=== PATIENT | female | born 1940 ===

== ENCOUNTER 2017-01-20 12:26 | Emergency (ER) | payer OTHER, MEDICARE ==
[~2017-01-20] VITALS: Ht 170.2 cm; Wt 63.5 kg
--- NOTE | 2017-01-20 12:38 | ED GI/GU/ABDOMINAL COMPLAINT ---
History of Present Illness General Chief Complaint: Abdominal Pain/Flank Pain Stated Complaint: BIBA ABD PAIN, +N/V Source: patient, family, old records Exam Limitations: no limitations Vital Signs & Intake/Output Vital Signs & Intake/Output Vital Signs Date Time Temp Pulse Resp B/P B/P Pulse O2 O2 Flow FiO2 Mean Ox Delivery Rate 01/20 1513 96.0 83 20 188/89 99 Room Air 01/20 1425 96.6 68 20 172/79 98 Room Air 01/20 1234 95.6 82 20 173/79 98 Room Air Allergies Coded Allergies: Sulfa (Sulfonamide Antibiotics) (NAUSEA 01/20/17) propoxyphene (From DARVON) (NAUSEA 01/20/17) Reconcile Medications Dicyclomine HCl 10 MG CAPSULE 1 CAP PO TID UNKNOWN (Reported) Donepezil HCl 10 MG TABLET 1 TAB PO DAILY DEMENTIA (Reported) Ondansetron (Zofran Odt) 4 MG TAB.RAPDIS 1 TAB SL TID PRN NAUSEA Triage Note: MARILU FROM DR OFFICE. PT REPORTS HAVING LEFT UPPR QUAD PAIN AND NAUSEA SINCE LAST NIGHT. REPORTS HAVING AN ULCER. Triage Nurses Notes Reviewed? yes ? N Is pt currently ? No HPI: Patient was sent in by her primary care physician for evaluation to rule out a perforated peptic ulcer. Patient is known peptic ulcer disease and has been having worsening left upper quadrant sharp stabbing pain over the past few weeks. The pain is constant. There are no aggravating or mitigating factors. She rates the pain a 7 out of 10. She states that she intermittently has diarrhea but that is ongoing chronic issue. Patient states that she gets nauseous and vomits, this is also not unusual for the patient. There are no fevers or chills. Patient states that while in [place] she had talked to her surgeon and there are plans to surgically remove the ulcer. Patient wanted to come back to [place] to have that procedure done. Past History Travel History Traveled to [place] past 21 day No Medical History Any Pertinent Medical History? see below for history Neurological: NONE EENT: NONE Cardiovascular: NONE Respiratory: NONE Gastrointestinal: peptic ulcer disease Hepatic: NONE Renal: NONE Musculoskeletal: NONE Psychiatric: NONE Endocrine: NONE Blood Disorders: NONE Cancer(s): NONE Surgical History Surgical History: non-contributory Psychosocial History What is your primary language Italian Tobacco Use: Never used ETOH Use: denies use Illicit Drug Use: denies illicit drug use Family History Hx Contributory? No Review of Systems Review of Systems Constitutional: Reports: no symptoms. EENTM: Reports: no symptoms. Respiratory: Reports: no symptoms. Cardiovascular: Reports: no symptoms. GI: Reports: see HPI, abdominal pain, diarrhea, nausea, vomiting. Genitourinary: Reports: no symptoms. Musculoskeletal: Reports: no symptoms. Skin: Reports: no symptoms. Neurological/Psychological: Reports: no symptoms. Hematologic/Endocrine: Reports: no symptoms. Immunologic/Allergic: Reports: no symptoms. All Other Systems: Reviewed and Negative Physical Exam Physical Exam General Appearance: well developed/nourished, alert, awake, moderate distress Head: atraumatic, normal appearance Eyes: Bilateral: PERRL, EOMI. Ears, Nose, Throat, Mouth: hearing grossly normal, moist mucous membrane Neck: normal inspection, supple, full range of motion Respiratory: normal breath sounds, chest non-tender, no respiratory distress, lungs clear Cardiovascular: regular rate/rhythm, normal peripheral pulses Gastrointestinal: normal bowel sounds, soft, no organomegaly, tenderness (LUQ), NO REBOUND OR GUARDING Back: normal inspection, normal range of motion Extremities: normal range of motion Neurologic/Psych: no motor/sensory deficits, awake, alert, oriented x 3, normal mood/affect Skin: intact, normal color, warm/dry Core Measures ACS in differential dx? No Severe Sepsis Present: No Septic Shock Present: No Progress Differential Diagnosis: pancreatitis, peptic ulcer, PUD/GERD, perforated viscous Plan of Care: Orders Procedure Date/time Status URINALYSIS 01/20 1238 Complete TROPONIN LEVEL 01/20 1238 Complete LIPASE 01/20 1238 Complete COMPREHENSIVE METABOLIC PANEL 01/20 1238 Complete CBC WITHOUT DIFFERENTIAL 01/20 1238 Complete AMYLASE 01/20 1238 Complete EKG 01/20 1227 Active Laboratory Tests 01/20/17 1300: Anion Gap 8, Estimated GFR > 60, BUN/Creatinine Ratio 15.0, Glucose 102 H, Calcium 11.1 H, Total Bilirubin 0.3, AST 30, ALT 46, Alkaline Phosphatase 82, Troponin I < 0.01, Total Protein 6.5, Albumin 3.9, Globulin 2.6, Albumin/ Globulin Ratio 1.5, Amylase 71, Lipase 148, CBC w Diff NO MAN DIFF REQ, RBC 4.47 , MCV 82.2, MCH 27.3, RDW 17.8 H, MPV 7.1 L, Gran % 72.2, Lymphocytes % 14.8 L, Monocytes % 12.0 H, Eosinophils % 0.6, Basophils % 0.4, Absolute Granulocytes 5.5, Absolute Lymphocytes 1.1 L, Absolute Monocytes 0.9 H, Absolute Eosinophils 0, Absolute Basophils 0, PUBS MCHC 33.2, Urine Color YEL, Urine Clarity CLEAR, Urine pH 7.5, Ur Specific [place] 1.010, Urine Protein NEG, Urine Ketones NEG, Urine Nitrite NEG, Urine Bilirubin NEG, Urine Urobilinogen 0.2, Ur Leukocyte Esterase NEG, Ur Microscopic EXAM NOT REQUIRED, Urine Hemoglobin NEG, Urine Glucose NEG Diagnostic Imaging: Viewed by Me: CT Scan. Discussed w/RAD: CT Scan. Radiology Impression: PATIENT: SHIRLEY RAMIREZ PRESENT AGE: 76 PATIENT ACCOUNT NO: [id number] : 39 LOCATION: [facility] ORDERING PHYSICIAN: AMRINO LAWRENCE MD SERVICE DATE: 01/20/17 EXAM TYPE: CAT - CT ABD & PELVIS W IV CONTRAST EXAMINATION: CT ABDOMEN AND PELVIS WITH CONTRAST CLINICAL INFORMATION: Left upper quadrant pain. Perforated peptic ulcer disease. COMPARISON: None TECHNIQUE: Multidetector volumetric imaging was performed of the abdomen and pelvis before and after the IV administration of 94 mL of Optiray 320 intravenous contrast. Sagittal and coronal reformatted images were obtained on the technologist's workstation. DLP: 280.83 mGy-cm FINDINGS: LUNG BASES: The visualized lung bases are unremarkable. LIVER, GALLBLADDER, AND BILIARY TREE: The liver is normal in size, shape, and attenuation. No focal hepatic lesion or biliary ductal dilatation is present. The gallbladder is unremarkable with no evidence of radiopaque gallstones, gallbladder wall thickening, or obvious pericholecystic inflammatory changes. PANCREAS: Unremarkable. SPLEEN: 1 cm splenule inferior to the spleen. ADRENAL GLANDS: Unremarkable. KIDNEYS AND URETERS: The kidneys are normal in size, shape, and attenuation. No hydronephrosis, hydroureter, or calculi seen. No perinephric stranding. BLADDER: Unremarkable. GASTROINTESTINAL TRACT: The mid gastric body to the gastric antrum is thickened and hypodense. There is suggestion of ulceration into the wall the mid body of the stomach with an ulceration measuring about 1 cm of depth. Air and debris within the ulceration. There is enhancement of the mucosa of the stomach. No edema in the surrounding fat. No obstruction. There is no gastric distention. The small bowel loops are normal. There is diverticulosis of sigmoid left colon without diverticulitis. The appendix is normal. ABDOMINAL WALL: No significant hernia is appreciated. LYMPH NODES: Normal. VASCULAR: Unremarkable. PELVIC VISCERA: Status post hysterectomy. Left adnexal hypodense cyst or follicle measuring 2.7 x 3.2 x 2.4 cm. OSSEOUS STRUCTURES: Vacuum disc phenomenon L5-S1. Calcification of the central nucleus pulposus L4-L5 and at the lower 3 thoracic disc levels IMPRESSION: 1. Thickening and edema of the wall of the stomach with a possible focal ulceration in the wall. No edema surrounding the stomach involving the mesenteric fat. No bowel obstruction. 2. Diverticulosis of colon without diverticulitis. 3. Status post hysterectomy. Follicle and/or cyst in left adnexa. DICTATED BY: YESIKA DRIVER MD DATE/TIME DICTATED:01/20/171453 BROKE BEATER OPERATOR:CLARITZA DATE/TIME TRANSCRIBED:01/20/171453 CONFIDENTIAL, DO NOT COPY WITHOUT APPROPRIATE AUTHORIZATION. <Electronically signed in Other Vendor System> SIGNED BY: YESIKA DRIVER MD 01/20/17 5025 Initial ED EKG: NSR, no ST T wave changes Comments: Discussed with Dr. Patrick. He will see her as an outpatient. Her last endoscopy was one month ago. Patient will take her dicyclomine. Patient will also follow up with surgery. Departure Departure Disposition: HOME OR SELF CARE Condition: Stable Clinical Impression Primary Impression: Peptic ulcer Referrals: ROBERTO SOTO,NALLELY Peters (PCP/Family) REE PATRICK MD Additional Instructions: Take Zofran as he for nausea. Take the dicyclomine as prescribed. Follow-up with Dr. Patrick from gastroenterology and Dr. Zafar from surgery. Return for any concerns. Departure Forms: Customer Survey General Discharge Information Prescriptions: Current Visit Scripts Ondansetron (Zofran Odt) 1 TAB SL TID PRN NAUSEA #10 TAB
[2017-01-20 13:10] LABS: ABSOLUTE BASOPHIL COUNT 0 /CUMM (0.0-0.2); ABSOLUTE EOSINOPHIL COUNT 0 /CUMM (0.0-0.7); ABSOLUTE GRANULOCYTE CT 5.5 /CUMM (1.4-6.5); ABSOLUTE LYMPH COUNT 1.1 /CUMM (1.2-3.4); ABSOLUTE MONOCYTE COUNT 0.9 /CUMM (0.10-0.60); BASOPHIL % 0.4 % (0.0-2.0); EOSINOPHIL % 0.6 % (0-5); GRANULOCYTE % 72.2 % (42.2-75.2); HEMATOCRIT 36.8 % (37-47); MEAN CORPUSCULAR HGB 27.3 PG (27.0-31.0); MEAN CORPUSCULAR HGB CONC 33.2 G/DL (33.0-37.0); MEAN CORPUSCULAR VOLUME 82.2 FL (81.0-99.0); MEAN PLATELET VOLUME 7.1 FL (7.4-10.4); PLATELET COUNT 279 /CUMM (130-400); RBC DISTRIBUTION WIDTH 17.8 % (11.5-14.5); RED BLOOD CELL CT 4.47 /CUMM (4.20-5.40); WHITE BLOOD CELL COUNT 7.6 /CUMM (4.8-10.8)
[2017-01-20] MEDS ORDERED: DONEPEZIL HCL10 M1 PO (14:07)
[2017-01-20] MEDS ORDERED: DICYCLOMINE HCL10 M1 PO (14:07)
--- NOTE | 2017-01-20 15:07 | CT SCAN REPORT ---
EXAMINATION: CT ABDOMEN AND PELVIS WITH CONTRAST CLINICAL INFORMATION: Left upper quadrant pain. Perforated peptic ulcer disease. COMPARISON: None TECHNIQUE: Multidetector volumetric imaging was performed of the abdomen and pelvis before and after the IV administration of 94 mL of Optiray 320 intravenous contrast. Sagittal and coronal reformatted images were obtained on the technologist's workstation. DLP: 280.83 mGy-cm FINDINGS: LUNG BASES: The visualized lung bases are unremarkable. LIVER, GALLBLADDER, AND BILIARY TREE: The liver is normal in size, shape, and attenuation. No focal hepatic lesion or biliary ductal dilatation is present. The gallbladder is unremarkable with no evidence of radiopaque gallstones, gallbladder wall thickening, or obvious pericholecystic inflammatory changes. PANCREAS: Unremarkable. SPLEEN: 1 cm splenule inferior to the spleen. ADRENAL GLANDS: Unremarkable. KIDNEYS AND URETERS: The kidneys are normal in size, shape, and attenuation. No hydronephrosis, hydroureter, or calculi seen. No perinephric stranding. BLADDER: Unremarkable. GASTROINTESTINAL TRACT: The mid gastric body to the gastric antrum is thickened and hypodense. There is suggestion of ulceration into the wall the mid body of the stomach with an ulceration measuring about 1 cm of depth. Air and debris within the ulceration. There is enhancement of the mucosa of the stomach. No edema in the surrounding fat. No obstruction. There is no gastric distention. The small bowel loops are normal. There is diverticulosis of sigmoid left colon without diverticulitis. The appendix is normal. ABDOMINAL WALL: No significant hernia is appreciated. LYMPH NODES: Normal. VASCULAR: Unremarkable. PELVIC VISCERA: Status post hysterectomy. Left adnexal hypodense cyst or follicle measuring 2.7 x 3.2 x 2.4 cm. OSSEOUS STRUCTURES: Vacuum disc phenomenon L5-S1. Calcification of the central nucleus pulposus L4-L5 and at the lower 3 thoracic disc levels IMPRESSION: 1. Thickening and edema of the wall of the stomach with a possible focal ulceration in the wall. No edema surrounding the stomach involving the mesenteric fat. No bowel obstruction. 2. Diverticulosis of colon without diverticulitis. 3. Status post hysterectomy. Follicle and/or cyst in left adnexa.
[2017-01-20 15:13] VITALS: BP 188/89
[2017-01-20] MEDS ORDERED: ZOFRAN ODT4 M1 SL (16:33)
== END 2017-01-20 16:44 ==
LOC: ERH 12:26
PROVIDERS: Emergency Medicine
DX: K27.9 Peptic ulcer, site unspecified, unspecified as acute or chronic, without hemorrhage or perforation (principal); R11.2 Nausea with vomiting, unspecified
CPT/HCPCS: 74177; 81003; 93005; 93010; 96361; 96374; 96375; J2405